=== PATIENT | female | born 1990 | race African-American/Black ===

== ENCOUNTER 2018-06-16 08:52 | Emergency (ER) | payer SELFPAY | END 2018-06-16 09:19 | disposition home or self-care (01) | LOC: NAV ERS 08:52 | DX: Z00.00 Encounter for general adult medical examination without abnormal findings (principal); I10 Essential (primary) hypertension | CPT/HCPCS: 99281 ==

== ENCOUNTER 2019-07-19 18:39 | Emergency (ER) | payer OTHER, SELFPAY ==
[2019-07-19] MEDS ORDERED: Pantoprazole 40 MG VIAL ONE (19:15)
[2019-07-19] MEDS ORDERED: Morphine 4 MG/ML VIAL ONE (19:15)
[2019-07-19] MEDS ORDERED: Ondansetron PF 4 MG/2 ML Vial ONE (19:15)
[2019-07-19 19:18] LABS: #Lymphocytes 1.3 thou/uL (1.20-3.40); #Monocytes 0.2 thou/uL (0.11-0.59); #Neutrophils 7.7 thou/uL (1.40-6.50); %Basophils 0.4 % (0.0-1.0); %Lymphocytes 14.2 % (21.0-51.0); %Monocytes 1.9 % (0.0-10.0); %Neutrophils 83.6 % (42.0-75.0); Hemoglobin 13.9 g/dL (12.0-16.0); Mean Corpuscular Hemoglobin 28.2 pg (27.0-31.0); Mean Corpuscular Volume 90.8 fL (78.0-98.0); Mean Platelet Volume 8.9 fL (7.4-10.4); Platelet Count 237 thou/uL (130-400); RBC Distribution Width 12.3 % (11.5-14.5); Red Blood Cell (RBC) Count 4.92 mill/uL (4.20-5.40); White Blood Cell (WBC) Count 9.2 thou/uL (4.8-10.8)
[2019-07-19 19:41] LABS: Bilirubin Negative (Negative); Blood, Urine Negative (Negative); Clarity Clear (Clear); Glucose, Urine (Dipstick) Negative (Negative); Leukocyte Negative (Negative); Nitrite Negative (Negative); Protein, Urine (Dipstick) 30 mg/dL (Neg-Trace); Urobilinogen 0.2 mg/dL (Less than 2)
[2019-07-19 19:42] LABS: ALT (SGPT) 39 U/L (8-55); AST (SGOT) 38 U/L (5-34); Albumin 4.9 g/dL (3.5-5.0); Alkaline Phosphatase 81 U/L (40-110); Anion Gap 21 mmol/L (10-20); BUN (Urea Nitrogen) 13 mg/dL (7.0-18.7); Bilirubin, Total 0.5 mg/dL (0.2-1.2); Calc. Creatinine Clearance 0 mL/min (70-130); Carbon Dioxide 20 mmol/L (22-29); Chloride 105 mmol/L (98-107); Estimated GFR-MDRD Greater than 90; Glucose 126 mg/dL (70-105); Lipase 32 U/L (8-78); Potassium 3.7 mmol/L (3.5-5.1); Protein, Total 8.9 g/dL (6.0-8.3); Sodium 142 mmol/L (136-145)
[2019-07-19 19:47] LABS: Pregnancy Test - Urine (BHCG) Negative (Negative); Pregu Control Background? CLEAR/WHITE (CLR/WHITE); Pregu Control Bar Appear? YES (CONTROL BAR); Specific Gravity 1.015 (1.002-1.036)
[2019-07-19 19:51] LABS: Amphetamine Not Detected (NotDetected); Barbiturates Screen Not Detected (NotDetected); Benzodiazepine Screen Not Detected (NotDetected); Cocaine Metabolite Screen Not Detected (NotDetected); Medtox Control Line Valid? VALID (VALID); Methadone Not Detected (NotDetected); Methamphetamine Not Detected (NotDetected); Opiate Screen Detected (NotDetected); Oxycodone Screen Not Detected (NotDetected); Phencyclidine (PCP) Not Detected (NotDetected); THC/Cannabinoid Screen Not Detected (NotDetected); Tricyclic Screen Not Detected (NotDetected)
[2019-07-19 19:53] LABS: RBC/HPF 0-3 HPF (0-3); Squamous Epithelial 0-3 HPF (0-3); WBC/HPF 0-3 HPF (0-3)
--- NOTE | 2019-07-19 20:29 | CT ---
CT BRAIN WITHOUT CONTRAST: 07/19/19 HISTORY: Weakness, nausea and vomiting. COMPARISON: None. FINDINGS: There is an abnormal parenchymal calcification measuring up to 8 mm in the right frontal operculum. N o significant adjacent vasogenic edema. No acute hemorrhage. No territorial infarction. The paranasal sinuses and mastoids are clear. IMPRESSION: 7-8 mm right frontal operculum cortical and subcortical calcification without significant adjacent va sogenic edema. Etiology is unknown and follow-up MRI with and without contrast is recommended. POS: HOME
--- NOTE | 2019-07-19 20:31 | RAD ---
CHEST TWO VIEW: 07/19/19 HISTORY: Chest pain. COMPARISON: None. FINDINGS: The lungs are clear. No pneumothorax. No effusion. The cardiac silhouette and mediastinal contours ar e within normal limits. Linear radiopacity projects over the neck, extrinsic to the patient. IMPRESSION: No acute intrathoracic abnormality. POS: HOME
== END 2019-07-19 23:11 | disposition short-term general hospital (02) ==
LOC: NAV ERS 18:39
DX: G93.89 Other specified disorders of brain (principal); R29.898 Other symptoms and signs involving the musculoskeletal system; I10 Essential (primary) hypertension
CPT/HCPCS: 70450; 71046; 80053; 80306; 81003; 81015; 81025; 83690; 85025; 96374; 96375; C9113; J2270; J2405

== ENCOUNTER 2020-01-18 08:35 | Emergency (ER) | payer OTHER | END 2020-01-18 09:49 | disposition short-term general hospital (02) | LOC: NAV ERS 08:35 | DX: O36.8121 Decreased fetal movements, second trimester, fetus 1 (principal); O16.2 Unspecified maternal hypertension, second trimester; Z79.899 Other long term (current) drug therapy; Z3A.15 15 weeks gestation of pregnancy ==

== ENCOUNTER 2021-01-14 04:12 | Emergency (ER) | payer OTHER, SELFPAY | END 2021-01-14 04:47 | disposition home or self-care (01) | LOC: NAV ERS 04:12 | DX: Z04.89 Encounter for examination and observation for other specified reasons (principal); I10 Essential (primary) hypertension | CPT/HCPCS: 99281 ==